=== PATIENT | female | born 1980 | race Caucasian/White ===

== ENCOUNTER 2018-10-10 08:54 | Emergency (ER) | payer MEDICAID ==
[~2018-10-10] VITALS: Ht 165.1 cm; Wt 91.0 kg
[2018-10-10] MEDS ORDERED: HYDROCODONE/ACETAMINOPHEN 5/325MG TABLET PO ONE (09:45)
[2018-10-10] MEDS ORDERED: KETOROLAC 60MG/2ML VIAL IM ONE (09:45)
[2018-10-10] MEDS ORDERED: BACITRACIN ZINC OINT UDPKT TOP ONE (10:00)
[2018-10-10 10:17] VITALS: BP 118/76
== END 2018-10-10 10:51 | disposition home or self-care (01) ==
LOC: ER 09:15
DX: S00.81XA Abrasion of other part of head, initial encounter (principal); M54.2 Cervicalgia; T23.572A Corrosion of first degree of left wrist, initial encounter; T23.571A Corrosion of first degree of right wrist, initial encounter; V49.49XA Driver injured in collision with other motor vehicles in traffic accident, initial encounter; Y93.89 Activity, other specified; Y92.488 Other paved roadways as the place of occurrence of the external cause
CPT/HCPCS: 96372; 99283; J1885